=== PATIENT | male | born 1960 | race African-American/Black ===

== ENCOUNTER 2023-06-27 02:10 | Emergency (ER) | payer OTHER, SELFPAY ==
[2023-06-27 03:52] LABS: ALT (SGPT) 13 U/L (8-55); AST (SGOT) 14 U/L (5-34); Albumin 3.9 g/dL (3.4-4.8); Alkaline Phosphatase 91 U/L (40-110); Anion Gap 16 mmol/L (10-20); BUN (Urea Nitrogen) 33 mg/dL (8.4-25.7); Bilirubin, Total 0.4 mg/dL (0.2-1.2); Calc. Creatinine Clearance 0 mL/min (70-130); Calcium 9.8 mg/dL (7.8-10.44); Carbon Dioxide 22 mmol/L (23-31); Chloride 99 mmol/L (98-107); Estimated GFR 55; Globulin 3.7 g/dL (2.4-3.5); Glucose 339 mg/dL (80-115); Potassium 4.6 mmol/L (3.5-5.1); Protein, Total 7.6 g/dL (5.8-8.1); Sodium 132 mmol/L (136-145)
[2023-06-27 03:59] LABS: #Basophils 0.1 10x3/uL (0.0-0.2); #Eosinphils 0.3 10x3/uL (0.0-0.5); #Monocytes 0.6 10x3/uL (0.0-1.1); #Neutrophils 2.9 10x3/uL (1.5-8.4); %Basophils 1.2 % (0.0-2.0); %Eosinophils 6.9 % (0.0-6.0); %Lymphocytes 9.8 % (18.0-47.0); %Monocytes 13.3 % (0.0-10.0); %Neutrophils 68.6 % (40.0-75.0); Hematocrit 31.2 % (38.8-50.0); Hemoglobin 10.7 g/dL (13.5-17.5); Mean Corpuscular HGB CONC 34.3 g/dL (32.0-36.0); Mean Corpuscular Volume 81.7 fl (81.2-95.1); Mean Platelet Volume 10.3 fl (7.4-10.4); Platelet Count 218 10x3/uL (150-450); Red Blood Cell (RBC) Count 3.82 10x6/uL (4.32-5.72); Troponin I Less than 0.010 ng/mL (< 0.028); White Blood Cell (WBC) Count 4.2 10x3/uL (3.5-10.5)
[2023-06-27 06:26] LABS: Troponin I 0.049 ng/mL (< 0.028)
== END 2023-06-27 07:41 | disposition left against medical advice (07) ==
LOC: EEVIPCON 02:10 → CSHERS 02:10
DX: R07.9 Chest pain, unspecified (principal); R79.89 Other specified abnormal findings of blood chemistry; C07 Malignant neoplasm of parotid gland
CPT/HCPCS: 36415; 71045; 80053; 84484; 85025; 93005; 93010